=== PATIENT | female | born 1990 | race Caucasian/White ===

== ENCOUNTER 2016-12-07 11:14 | Emergency (ER) | payer BC ==
[2016-12-07 11:29] VITALS: BP 101/83
--- NOTE | 2016-12-07 12:04 | UC ---
Skin Complaint HPI - HPI Summary HPI Summary: Pt presents with c/o of painful, "tichy "bites" or rash to right uppre anterior chest/medial upper breast and right upper back. Pt describes the area as itchy and burning and tender to touch. pt also reports that on right upper medial breat she has 3 "hard tender lumps" that she thinks are insect bites. - History of Current Complaint Chief Complaint: UCSkin Time Seen by Provider: 12/07/16 11:25 Stated Complaint: SKIN COMPLAINT Hx Obtained From: Patient Hx Last Menstrual Period: 11/23/16 ?: No Onset/Duration: Gradual Onset, Still Present Skin Exposure Onset/Duration: Days Ago Timing: Constant Onset Severity: Mild Current Severity: Mild Pain Intensity: 4 Pain Scale Used: 0-10 Numeric Location: Discrete - right medial upper breast, right upper back Character: Pruritus, Redness, Raised, Painful Aggravating: Touch Alleviating: Unknown Associated Signs & Symptoms: Positive: Rash Related History: Insect Bite/Sting - unsure - Allergy/Home Medications Allergies/Adverse Reactions: Allergies Allergy/AdvReac Type Severity Reaction Status Date / Time Amoxicillin Allergy Hives Verified 12/07/16 11:28 Penicillins Allergy Hives Verified 12/07/16 11:28 Home Medications: Home Medications Calamine LOTION* 1 applic .SEE ORDER SEE INSTRUCTIONS PRN 12/07/16 [History Confirmed 12/07/16] Review of Systems Constitutional: Negative Skin: Rash Eyes: Negative ENT: Negative Respiratory: Negative Cardiovascular: Negative Gastrointestinal: Negative Genitourinary: Negative Motor: Negative Neurovascular: Negative Musculoskeletal: Negative Neurological: Negative Psychological: Negative All Other Systems Reviewed And Are Negative: Yes PMH/Surg Hx/FS Hx/Imm Hx Previously Healthy: Yes - history of chicken pox - Surgical History Surgical History: Yes Surgery Procedure, Year, and Place: TONSILLECTOMY - Family History Known Family History: Positive: Other - no asthma or COPD - Social History Occupation: Employed Full-time - [employer] [place] Lives: With Family Alcohol Use: Rare Substance Use Type: None Smoking Status (MU): Never Smoked Tobacco Have You Smoked in the Last Year: No Physical Exam Triage Information Reviewed: Yes Appearance: Well-Appearing Vital Signs: Initial Vital Signs Temp 98.5 F 12/07/16 11:22 Pulse 53 12/07/16 11:22 Resp 14 12/07/16 11:22 BP 101/83 12/07/16 11:22 Pulse Ox 100 12/07/16 11:22 Vital Signs Reviewed: Yes Eye Exam: Normal ENT Exam: Normal Dental Exam: Normal Neck exam: Normal Respiratory Exam: Normal Cardiovascular Exam: Normal Musculoskeletal Exam: Normal Neurological Exam: Normal Psychological Exam: Normal Skin Exam: Other Skin: Positive: rashes - right upper medial breast mild erythema, 3 small crusted "lumps"; right upper back mild erythema, tender to touch, small raised area Course/Dx - Differential Diagnoses - Skin Complaint Differential Diagnoses: Cellulitis, Varicella Zoster - Diagnoses Provider Diagnoses: shingles. cellulitis Discharge - Discharge Plan Condition: Stable Disposition: HOME Prescriptions: Acyclovir OINT 5%(NF) [Zovirax Oint 5%(NF)] 1 applic TOPICAL Q8H #1 tube DOXYcycline CAP(*) [DOXYcycline 100MG CAP(*)] 100 mg PO BID #14 cap Patient Education Materials: Shingles (ED), Cellulitis (ED) Referrals: [facility] [place] [facility] REFERRAL [Outside] Non Staff,Doctor [Primary Care Provider] - If Needed Additional Instructions: Please follow up with your PCP or return to clinic as needed.
== END 2016-12-07 11:53 | disposition home or self-care (01) ==
LOC: UCCORT 11:14
DX: B02.9 Zoster without complications (principal); L03.90 Cellulitis, unspecified
CPT/HCPCS: 99211; G0463

== ENCOUNTER 2017-04-29 11:41 | Emergency (ER) | payer BC ==
[2017-04-29 12:37] VITALS: BP 133/82
--- NOTE | 2017-04-29 13:14 | UC ---
Complaint Female HPI - HPI Summary HPI Summary: patient treated for uti 3-4 weeks ago, started feeling better, has decreased water intake and now has dysuria and urgency again. - History Of Current Complaint Chief Complaint: UCGU Stated Complaint: URINARY Time Seen by Provider: 04/29/17 13:04 Hx Obtained From: Patient Hx Last Menstrual Period: 11/23/16 ?: No Onset/Duration: Sudden Onset, Lasting Days Timing: Intermittent Severity Initially: Moderate Severity Currently: Moderate Character: Burning Aggravating Factor(s): Urination Alleviating Factor(s): Nothing - Allergies/Home Medications Allergies/Adverse Reactions: Allergies Allergy/AdvReac Type Severity Reaction Status Date / Time Amoxicillin Allergy Hives Verified 04/29/17 12:35 Penicillins Allergy Hives Verified 04/29/17 12:35 Home Medications: Home Medications Phenazopyridine TAB* [Pyridium 100 mg TAB*] 100 mg PO ONCE 04/29/17 [History Confirmed 04/29/17] PMH/Surg Hx/FS Hx/Imm Hx Previously Healthy: Yes - Surgical History Surgical History: Yes Surgery Procedure, Year, and Place: TONSILLECTOMY - Family History Known Family History: Positive: Other - no asthma or COPD - Social History Alcohol Use: Rare Substance Use Type: None Smoking Status (MU): Never Smoked Tobacco Have You Smoked in the Last Year: No Review of Systems Constitutional: Negative Skin: Negative Eyes: Negative ENT: Negative Respiratory: Negative Cardiovascular: Negative Gastrointestinal: Negative Genitourinary: Dysuria, Frequency, Urgency Motor: Negative Neurovascular: Negative Musculoskeletal: Negative Neurological: Negative Psychological: Negative Is Patient Immunocompromised?: No All Other Systems Reviewed And Are Negative: Yes Physical Exam Triage Information Reviewed: Yes Appearance: Well-Appearing, Well-Nourished, Pain Distress Vital Signs: Initial Vital Signs Temp 98.4 F 04/29/17 12:31 Pulse 94 04/29/17 12:31 Resp 16 04/29/17 12:31 BP 133/82 04/29/17 12:31 Pulse Ox 100 04/29/17 12:31 Vital Signs Reviewed: Yes Eye Exam: Normal ENT Exam: Normal Dental Exam: Normal Neck exam: Normal Respiratory Exam: Normal Respiratory: Positive: Chest non-tender, Lungs clear, Normal breath sounds Cardiovascular Exam: Normal Cardiovascular: Positive: RRR, No Murmur, Pulses Normal Abdominal Exam: Normal Abdomen Description: Positive: Nontender, No Organomegaly, Soft, CVA Tenderness (R) - neg, CVA Tenderness (L) - neg Bowel Sounds: Positive: Present Musculoskeletal Exam: Normal Musculoskeletal: Positive: Strength Intact, ROM Intact, No Edema Neurological Exam: Normal Neurological: Positive: Alert, Muscle Tone Normal Psychological Exam: Normal Skin Exam: Normal Complaint Female Dx - Course Course Of Treatment: hx obtained, exam performed, meds reviewed, patient took azo, urine culture sent, treated with keflex - Differential Dx/Diagnosis Differential Diagnosis/HQI/PQRI: Ureteral Stone, Urinary Tract Infection Provider Diagnoses: UTI Discharge - Discharge Plan Condition: Stable Disposition: HOME Patient Education Materials: Urinary Tract Infection in Women (ED) Referrals: Non Staff,Doctor [Primary Care Provider] - Additional Instructions: 1. increase fluid intake, 2. High dose cranberry pills, 25,00 units hourly while awake today, 3. Take the keflex as ordered, we will send the urine to be cultured and call with any need to change the medications.
== END 2017-04-29 13:18 | disposition home or self-care (01) ==
LOC: UCCORT 11:41
DX: N39.0 Urinary tract infection, site not specified (principal)
CPT/HCPCS: 87077; 87086; 99212; G0463

== ENCOUNTER 2017-11-28 09:32 | Emergency (ER) | payer BC ==
[2017-11-28 10:42] VITALS: BP 133/89
--- NOTE | 2017-11-28 10:49 | UC ---
Skin Complaint HPI - HPI Summary HPI Summary: 27 y/o female presents to the urgent care c/o left posterior knee w/ mild swelling and redness and painful to touch for the past 2 days. Pt reports 4 years ago she got cellulitis in the same spot and symptoms started the same. She end up in the ER since she allow it to progress. Pt states she usually shaves her legs and this time she did it w/ an old shaver. Pt states pain is mild 3/10 at touch. She can move left Knee w/o any difficulty. Pt denies fever, numbness or tingling sensation over the left lower extremity, SOB, chest pain, palpitations, recent travel, use of OCP or smoking. L - History of Current Complaint Chief Complaint: UCLowerExtremity Time Seen by Provider: 11/28/17 10:47 Stated Complaint: LEFT LEG PAIN Hx Obtained From: Patient Hx Last Menstrual Period: 11/07/17 ?: No Onset/Duration: Gradual Onset, Lasting Days - 2 days, Still Present Skin Exposure Onset/Duration: Days Ago - 2 days Timing: Constant Onset Severity: Mild Current Severity: Mild Pain Intensity: 3 Pain Scale Used: 0-10 Numeric Location: Discrete - left knee red rash Character: Pain - mild, Redness Aggravating Factor(s): Touch Alleviating Factor(s): Nothing Associated Signs & Symptoms: Positive: Rash. Negative: Nausea, Vomiting, Numbness, Fever, Chills, Hoarseness, Throat Tightening Related History: Other: - shaving her legs - Allergy/Home Medications Allergies/Adverse Reactions: Allergies Allergy/AdvReac Type Severity Reaction Status Date / Time amoxicillin Allergy Hives Verified 11/28/17 10:35 Penicillins Allergy Hives Verified 11/28/17 10:35 Review of Systems Constitutional: Negative Skin: Rash - posterior knee w/ a mild red rash Eyes: Negative ENT: Negative Respiratory: Negative Cardiovascular: Negative Gastrointestinal: Negative Genitourinary: Negative Motor: Negative Neurovascular: Negative Musculoskeletal: Other: - left posterior knee s/p rash Neurological: Negative Psychological: Negative Is Patient Immunocompromised?: No All Other Systems Reviewed And Are Negative: Yes PMH/Surg Hx/FS Hx/Imm Hx Previously Healthy: Yes - Pt denies PMHX - Surgical History Surgical History: Yes Surgery Procedure, Year, and Place: T&A, ~2010[facility]ha - Family History Known Family History: Positive: Diabetes - Social History Occupation: Employed Full-time Lives: With Family Alcohol Use: Rare Substance Use Type: None Smoking Status (MU): Never Smoked Tobacco Have You Smoked in the Last Year: No Physical Exam - Summary Physical Exam Summary: Vital Signs Reviewed: Yes General: well developed, well nourished obese female sitting in the examining table w/o any apparent distress. Eyes: Positive: Conjunctiva Clear - PERRLA, EOMI ENT: Positive: Normal ENT inspection, Hearing grossly normal, Pharynx normal, TMs normal Neck: Positive: Supple, Nontender, No Lymphadenopathy Respiratory: Positive: Chest nontender, Lungs clear, Normal breath sounds Cardiovascular: Positive: RRR, No Murmur, Pulses Normal Abdomen Description: Positive: Nontender, No Organomegaly, Soft. Negative: CVA Tenderness (R), CVA Tenderness (L) Bowel Sounds: Positive: Present Musculoskeletal: Positive: Strength Intact, ROM Intact, No Edema Neurological Exam: Normal Psychological Exam: Normal Skin: Positive: rashes - Left posterior medial side of left knee w/ mild erythematous patch w/ indistinct borders, warm to touch, swelling and tender to palpation. FROM of left knee, pulses WNL, capillary refill intact, sensation WNL , ignacio's sign negative. mild break in the skin s/p shaving. Triage Information Reviewed: Yes Vital Signs: Initial Vital Signs Temp 98.2 F 11/28/17 10:36 Pulse 84 11/28/17 10:36 Resp 16 11/28/17 10:36 BP 133/89 11/28/17 10:36 Pulse Ox 98 11/28/17 10:36 Course/Dx - Course Course Of Treatment: 27 y/o female presents to the urgent care c/o left posterior knee w/ mild swelling and redness and painful to touch for the past 2 days. Pt reports 4 years ago she got cellulitis in the same spot and symptoms started the same. She end up in the ER since she allow it to progress. Pt states she usually shaves her legs and this time she did it w/ an old shaver. Pt states pain is mild 3/10 at touch. She can move left Knee w/o any difficulty. Pt denies fever, numbness or tingling sensation over the left lower extremity, SOB, chest pain, palpitations, recent travel, use of OCP or smoking. Hx obtained. Pt w/ left posterior knee cellulitis s/p shaving one examination.Pt PCN allergic.Pt Rx Bactrim PO and Ibuprofen PO to alleviate symptoms. D/C instructions explained. Pt understood and agreed w/ plan of care. - Differential Diagnoses - Skin Complaint Differential Diagnoses: Abscess, Cellulitis, Contact Dermatitis, Other - gout, varicose veins, phlebitis - Diagnoses Provider Diagnoses: 1- Posterior left knee cellulitis Discharge - Sign-Out/Discharge Documenting (check all that apply): Patient Departure - D/C home All imaging exams completed and their final reports reviewed: No Studies - Discharge Plan Condition: Stable Disposition: HOME Prescriptions: Ibuprofen TAB* [Motrin TAB* 800 MG] 800 mg PO Q6H PRN #30 tab PRN Reason: Pain Sulfamethox/Trimethoprim DS* [Bactrim DS 800/160 TAB*] 1 tab PO BID #20 tab Patient Education Materials: Cellulitis (ED) Referrals: [facility] [place] [facility] REFERRAL [Outside] - 3 Days Additional Instructions: 1-Please take full course of Antibiotic. Please take Ibuprofen PO q6-8hrs prn for pain and swelling after meals as directed 2- If redness and swelling doubles in size after 48 hrs of taking antibiotic and fever and severe pain develops please go to the ER immediately for further management. 3-Avoid standing for long periods of time or flexing your knee, keep it elevated as much as possible. 4-Please F/u with your PCP in 3 days if not improvement of symptoms for further evaluation and treatment. - Billing Disposition and Condition Condition: STABLE Disposition: Home Attestation Statement User Type: Provider - I was available for consult. This patient was seen by the DOMINGO. The patient was not presented to, seen by, or examined by me. -Celio
== END 2017-11-28 11:14 | disposition home or self-care (01) ==
LOC: UCCORT 09:32
DX: L03.116 Cellulitis of left lower limb (principal); Z88.0 Allergy status to penicillin
CPT/HCPCS: 99212; G0463